=== PATIENT | female | born 2000 | race African-American/Black ===

== ENCOUNTER 2022-04-04 13:17 | Emergency (ER) | payer OTHER ==
[~2022-04-04] VITALS: Ht 165.1 cm; Wt 54.4 kg
[2022-04-04 13:33] VITALS: BP 138/80
[2022-04-04] MEDS ORDERED: ONDA-188 SL (14:16)
--- NOTE | 2022-04-04 15:08 | NUR ---
Lab at bedside.
--- NOTE | 2022-04-04 15:16 | NUR ---
21 y/o female bib self with c/o umbilical region pain x today. Per patient, "she had an episode of severe pain with nausea, vomiting and dizziness." Patient also had diarrhea during the episode of severe pain. Patient denies any new foods or sick contacts. Denies any fever, chills or SOB. Medical History: Denies NKDA
[2022-04-04 15:26] LABS: BASOPHILS % (AUTO) 0.3 % (0.0-2.0); EOSINOPHILS % (AUTO) 0.4 % (0.0-4.0); HEMATOCRIT 32.5 % (36-48); HEMOGLOBIN 10.4 g/dL (12.0-16.0); LYMPHOCYTES # (AUTO) 1.1 K/uL (2.5-16.5); LYMPHOCYTES % (AUTO) 16.8 % (20.5-51.1); MEAN CORPUSCULAR HEMOGLOBIN 25 pg (27-31); MEAN CORPUSCULAR HGB CONC 32 g/dL (33-37); MEAN CORPUSCULAR VOLUME 77.4 fL (80-94); MONOCYTES # (AUTO) 0.5 K/uL (0.8-1.0); MONOCYTES % (AUTO) 7.5 % (1.7-9.3); NEUTROPHILS # (AUTO) 5.1 K/uL (1.8-7.7); PLATELET COUNT (AUTO) 228 K/uL (140-450); RED BLOOD CELL COUNT(AUTO) 4.19 MIL/uL (4.20-5.40); WHITE BLOOD COUNT (AUTO) 6.9 K/uL (4.5-11.0)
[2022-04-04 15:35] LABS: ALBUMIN 3.7 g/dL (3.4-5.0); ANION GAP 12.5 (8-16); CARBON DIOXIDE 25.4 mmol/L (21-32); CREATININE 0.7 mg/dL (0.6-1.3); POTASSIUM 3.9 mmol/L (3.5-5.1); TOTAL BILIRUBIN 0.6 mg/dL (0.0-1.0)
[2022-04-04 15:59] VITALS: BP 113/59
--- NOTE | 2022-04-04 15:59 | NUR ---
Patient discharged with v/s stable. Written and verbal after care instructions given. Patient alert, oriented and verbalized understanding of instructions. Ambulatory with steady gait. All questions addressed prior to discharge. ID band removed. Patient advised to follow up with PMD. Rx of Zofran given. Opportunity to ask questions provided and answered.
== END 2022-04-04 15:59 | disposition home or self-care (01) ==
LOC: MED 13:17
DX: R10.13 Epigastric pain (principal); R11.10 Vomiting, unspecified; R19.7 Diarrhea, unspecified; Z79.899 Other long term (current) drug therapy
CPT/HCPCS: 36415; 80053; 83690; 85025; 99283

== ENCOUNTER 2023-04-27 19:36 | Emergency (ER) | payer OTHER ==
[~2023-04-27] VITALS: Ht 165.1 cm; Wt 54.4 kg
[~2023-04-27 19:36] MED LIST: ONDA-188 SL
[2023-04-27 19:58] VITALS: BP 121/74; PULSE 57; RESP 16; TEMP 97.8; O2SAT 100
[2023-04-27] MEDS ORDERED: CETI-24 PO (21:25)
[2023-04-27] MEDS ORDERED: PROM118S5 PO (21:25)
[2023-04-27] MEDS ORDERED: IBUP-2213 PO (21:25)
[2023-04-27 21:32] VITALS: BP 120/74; PULSE 62; RESP 16; TEMP 97.8; O2SAT 100
[2023-04-27 22:16] LABS: FLU A ANTIGEN negative (NEGATIVE); FLU B ANTIGEN NEGATIVE (NEGATIVE)
== END 2023-04-27 21:32 | disposition home or self-care (01) ==
LOC: MED 19:36
DX: J06.9 Acute upper respiratory infection, unspecified (principal); Z20.822 Contact with and (suspected) exposure to COVID-19; Z79.899 Other long term (current) drug therapy
CPT/HCPCS: 71045; 99284

== ENCOUNTER 2023-10-18 13:59 | Emergency (ER) | payer OTHER ==
[~2023-10-18] VITALS: Ht 165.1 cm; Wt 55.3 kg
[~2023-10-18 13:59] MED LIST changes: +CETI-24 PO; +IBUP-2213 PO; +PROM118S5 PO
[2023-10-18 14:10] VITALS: BP 112/62; PULSE 54; RESP 14; TEMP 98.4; O2SAT 98
[2023-10-18] MEDS ORDERED: DICL100G32 TP (15:32)
[2023-10-18 15:39] VITALS: BP 112/62; PULSE 54; RESP 14; TEMP 98.4; O2SAT 98
== END 2023-10-18 15:40 | disposition home or self-care (01) ==
LOC: MED 13:59
DX: S63.610A Unspecified sprain of right index finger, initial encounter (principal); Z98.890 Other specified postprocedural states; Z79.899 Other long term (current) drug therapy; X58.XXXA Exposure to other specified factors, initial encounter; Y92.89 Other specified places as the place of occurrence of the external cause; Y93.89 Activity, other specified; Y99.8 Other external cause status
CPT/HCPCS: 73140; 99283; Q0092